=== PATIENT | female | born 1955 | race Caucasian/White ===

== ENCOUNTER → 2017-08-28 | Outpatient (CLI) | payer OTHER ==
[2017-08-28 17:35] LABS: HEMATOCRIT 34.5 % (36.0-47.0); HEMOGLOBIN 11.8 g/dl (12.0-15.5); MEAN CORPUSCULAR HEMOGLOBIN 32.9 pg (27.0-33.0); MEAN CORPUSCULAR HGB CONC 34.2 g/dl (32.0-36.5); MEAN CORPUSCULAR VOLUME 96.1 fl (80.0-96.0); PLATELET COUNT, AUTOMATED 175 10^3/uL (150-450); RED BLOOD COUNT 3.59 10^6/uL (4.00-5.40); WHITE BLOOD COUNT 5.7 10^3/uL (4.0-10.0)
[2017-08-28 19:36] LABS: ALBUMIN 3.8 GM/DL (3.2-5.2); ALBUMIN/GLOBULIN RATIO 1.19 (1.00-1.93); ALKALINE PHOSPHATASE 55 U/L (45-117); ALT/SGPT 39 U/L (12-78); ANION GAP 4 MEQ/L (8-16); AST/SGOT 20 U/L (7-37); BILIRUBIN,TOTAL 0.7 MG/DL (0.2-1.0); BLOOD UREA NITROGEN 12 MG/DL (7-18); CALCIUM LEVEL 9.1 MG/DL (8.8-10.2); CARBON DIOXIDE LEVEL 30 MEQ/L (21-32); CHLORIDE LEVEL 105 MEQ/L (98-107); CHOLESTEROL LEVEL 216 MG/DL (<200); CHOLESTEROL RISK RATIO 2.138 (<5); CREATININE FOR GFR 0.65 MG/DL (0.55-1.30); GLOMERULAR FILTRATION RATE > 60.0 (>45); GLUCOSE, FASTING 85 MG/DL (70-100); HDL CHOLESTEROL 101 MG/DL (>40); LDL CHOLESTEROL 97.8 MG/DL (<100); MAGNESIUM LEVEL 2.1 MG/DL (1.8-2.4); NON-HDL-C 115 MG/DL; POTASSIUM SERUM 4.3 MEQ/L (3.5-5.1); SODIUM LEVEL 139 MEQ/L (136-145); THYROXINE (T4) 9.8 UG/DL (4.5-12.0); TRIGLYCERIDES LEVEL 86 MG/DL (<150)
[2017-08-28 19:40] LABS: FOLATE > 24.0 NG/ML; TOTAL 25(OH) VITAMIN D 18.6 NG/ML (30.0-100.0); VITAMIN B12 LEVEL 563 PG/ML
== END ==
LOC: M LAB 16:45
DX: Z98.84 Bariatric surgery status (principal)
CPT/HCPCS: 82746

== ENCOUNTER → 2018-08-21 | Outpatient (REF) | payer OTHER ==
[2018-08-21 17:50] LABS: INFLUENZA A AMPLIFICATION POSITIVE (NEGATIVE); INFLUENZA B AMPLIFICATION NEGATIVE (NEGATIVE)
== END ==
LOC: M LAB REF 16:28
PROVIDERS: ATTEND Physician Assistant
DX: J11.1 Influenza due to unidentified influenza virus with other respiratory manifestations (principal)

== ENCOUNTER → 2019-02-18 | Outpatient (CLI) | payer OTHER ==
[2019-02-18 11:28] LABS: BASO % 0.9 % (0.0-1.0); EOS # 0.1 10^3/uL (0.0-0.5); EOS % 2.1 % (0.0-3.0); HEMATOCRIT 37.6 % (36.0-47.0); HEMOGLOBIN 12.8 g/dl (12.0-15.5); LYMPH # 1.6 10^3/uL (1.5-5.0); LYMPH % 36.6 % (24.0-44.0); MEAN CORPUSCULAR HEMOGLOBIN 33.9 pg (27.0-33.0); MEAN CORPUSCULAR VOLUME 99.5 fl (80.0-96.0); MONO # 0.4 10^3/uL (0.0-0.8); MONO % 10.4 % (0.0-5.0); NEUTROPHILS # 2.1 10^3/uL (1.5-8.5); NEUTROPHILS % 49.8 % (36.0-66.0); PLATELET COUNT, AUTOMATED 201 10^3/uL (150-450); RED BLOOD COUNT 3.78 10^6/uL (4.00-5.40); WHITE BLOOD COUNT 4.2 10^3/uL (4.0-10.0)
[2019-02-18 11:57] LABS: ALBUMIN 3.6 GM/DL (3.2-5.2); ALT/SGPT 40 U/L (12-78); BILIRUBIN,TOTAL 0.6 MG/DL (0.2-1.0); BLOOD UREA NITROGEN 11 MG/DL (7-18); CALCIUM LEVEL 9.5 MG/DL (8.8-10.2); CARBON DIOXIDE LEVEL 30 MEQ/L (21-32); CHLORIDE LEVEL 104 MEQ/L (98-107); CHOLESTEROL LEVEL 238 MG/DL (<200); CHOLESTEROL RISK RATIO 2.034 (<5); CREATININE FOR GFR 0.69 MG/DL (0.55-1.30); FERRITIN 102 NG/ML (8-252); GLOMERULAR FILTRATION RATE > 60.0 (>45); GLUCOSE, FASTING 94 MG/DL (70-100); HDL CHOLESTEROL 117 MG/DL (>40); LDL CHOLESTEROL 102 MG/DL (<100); MAGNESIUM LEVEL 2.1 MG/DL (1.8-2.4); NON-HDL-C 121 MG/DL; POTASSIUM SERUM 4.3 MEQ/L (3.5-5.1); SODIUM LEVEL 140 MEQ/L (136-145); TRIGLYCERIDES LEVEL 95 MG/DL (<150)
[2019-02-18 12:04] LABS: FOLATE 23.2 NG/ML; TOTAL 25(OH) VITAMIN D 18.5 NG/ML (30.0-100.0); VITAMIN B12 LEVEL 564 PG/ML
== END ==
LOC: M LAB 10:07
PROVIDERS: ATTEND Family Medicine
DX: Z98.84 Bariatric surgery status (principal)

== ENCOUNTER 2019-10-23 02:09 | Emergency (ER) | payer OTHER ==
[~2019-10-23] VITALS: Ht 167.6 cm; Wt 82.0 kg
[2019-10-23 02:10] VITALS: BP 147/83
[2019-10-23] MEDS ORDERED: VITA-145 (02:19)
[2019-10-23] MEDS ORDERED: AMLO2.5T3 (02:19)
[2019-10-23] MEDS ORDERED: VIIB40TA (02:19)
--- NOTE | 2019-10-23 02:50 | REPVR ---
PROCEDURE INFORMATION: Exam: CT Head Without Contrast Exam date and time: 10/23/2019 2:34 AM Age: 63 years old Clinical indication: Injury or trauma; Fall; Initial encounter; Concussion / head injury; Consciousness not specified TECHNIQUE: Imaging protocol: Computed tomography of the head without contrast. Radiation optimization: All CT scans at this facility use at least one of these dose optimization techniques: automated exposure control; mA and/or kV adjustment per patient size (includes targeted exams where dose is matched to clinical indication); or iterative reconstruction. COMPARISON: No relevant prior studies available. FINDINGS: Brain: No intracranial mass, mass effect or midline shift. No acute intracranial hemorrhage. No CT evidence of acute cortical infarct. Ventricles: Ventricles, cisterns, and sulci are normal in size for age. Bones/joints: No calvarial fracture or destructive process. Sinuses: Imaged paranasal sinuses are clear. Mastoid air cells: Mastoid air cells are normally aerated. Orbits: Imaged orbits are unremarkable. Soft tissues: No focal extracranial soft tissue swelling. IMPRESSION: No acute or concerning focal intracranial abnormality. Electronically signed by: Nino Stein On 10/23/2019 02:49:27 AM
--- NOTE | 2019-10-23 02:51 | REPVR ---
PROCEDURE INFORMATION: Exam: CT Cervical Spine Without Contrast Exam date and time: 10/23/2019 2:34 AM Age: 63 years old Clinical indication: Neck pain; Additional info: Trauma TECHNIQUE: Imaging protocol: Computed tomography images of the cervical spine without contrast. Radiation optimization: All CT scans at this facility use at least one of these dose optimization techniques: automated exposure control; mA and/or kV adjustment per patient size (includes targeted exams where dose is matched to clinical indication); or iterative reconstruction. COMPARISON: No relevant prior studies available. FINDINGS: Vertebrae: No traumatic segmental malalignment of cervical spine or craniocervical junction. Vertebral body height is maintained at all levels. No acute fracture. No destructive or blastic cervical spine osseous lesion. Intervertebral disc height is decreased at multiple levels, with typical degenerative pattern and associated endplate, articular pillar and uncovertebral spurs. No high-grade spinal canal stenosis. Mild lower cervical osseous neural foraminal stenosis secondary to uncovertebral arthropathy, C4-C5 through C6-C7 and also C3-C4 Prevertebral Space: Prevertebral soft tissues demonstrate no asymmetry. Lungs: No concerning abnormality of the imaged lung apices. IMPRESSION: 1. No acute fracture or traumatic subluxation of the cervical spine. 2. Multilevel degenerative disc and articular pillar arthropathy. Electronically signed by: Nino Stein On 10/23/2019 02:50:37 AM
--- NOTE | 2019-10-23 05:35 | REP ---
Clinical: Trauma . Technique: AP, lateral, bilateral oblique views of the left elbow. Findings: No acute fracture or dislocation is appreciated. Joint spaces and surrounding soft tissues appear normal. Lateral view demonstrates normal positioning to the anterior and posterior fat pads without evidence for effusion/hemarthrosis. No subcutaneous emphysema or foreign body identified. Impression: No acute fracture or dislocation. Electronically Signed by Jaron Alicea MD 10/23/2019 05:27 A
--- NOTE | 2019-10-23 05:36 | REP ---
Clinical: Trauma. Technique: AP, lateral, bilateral oblique views of the left wrist. Findings: A very subtle buckle fracture of the distal radial metaphysis is suggested. Clinical correlation is recommended. Underlying age-related osteopenia and degenerative changes noted. Impression: Very subtle buckle fracture of the distal radial metaphysis cannot be excluded. Electronically Signed by Jaron Alicea MD 10/23/2019 05:28 A
== END 2019-10-23 05:05 | disposition home or self-care (01) ==
LOC: M ED 02:09
DX: S52.522A Torus fracture of lower end of left radius, initial encounter for closed fracture (principal); S50.02XA Contusion of left elbow, initial encounter; W18.39XA Other fall on same level, initial encounter; Y92.018 Other place in single-family (private) house as the place of occurrence of the external cause; I10 Essential (primary) hypertension; F10.10 Alcohol abuse, uncomplicated; F33.9 Major depressive disorder, recurrent, unspecified; Z79.899 Other long term (current) drug therapy

== ENCOUNTER 2020-07-02 01:50 | Inpatient (IN) | payer OTHER ==
[~2020-07-02] VITALS: Ht 167.6 cm; Wt 83.2 kg
[~2020-07-02 01:50] MED LIST: AMLO2.5T3; VIIB40TA; VITAD1000T
--- OUTSIDE RECORDS SUMMARY | 2020-07-02 01:57 | CCD ---
Author Author [facility] Organization [facility] Address Unknown Phone Unavailable Care Team Providers Care Bit Setter Name Role Phone Sriram THOMASON MD Unavailable Unavailable Sriram THOMASON MD Unavailable Unavailable Sriram THOMASON MD Unavailable Unavailable Sriram THOMASON MD Unavailable Unavailable Sriram THOMASON MD Unavailable Unavailable Sriram THOMASON MD Unavailable Unavailable Sriram THOMASON MD Unavailable Unavailable Sriram THOMASON MD Unavailable Unavailable Sriram THOMASON MD Unavailable Unavailable Sriram THOMASON MD Unavailable Unavailable Sriram THOMASON MD Unavailable Unavailable Sriram THOMASON MD Unavailable Unavailable Sriram THOMASON MD Unavailable Unavailable Sriram THOMASON MD Unavailable Unavailable Sriram THOMASON MD Unavailable Unavailable Sriram THOMASON MD Unavailable Unavailable Sriram THOMASON MD Unavailable Unavailable Sriram THOMASON MD Unavailable Unavailable Sriram THOMASON MD Unavailable Unavailable Sriram THOMASON MD Unavailable Unavailable Sriram THOMASON MD Unavailable Unavailable Sriram THOMASON MD Unavailable Unavailable Sriram THOMASON MD Unavailable Unavailable Sriram THOMASON MD Unavailable Unavailable Sriram THOMASON MD Unavailable Unavailable Sriram THOMASON MD Unavailable Unavailable PADDY, S MURTAZA MD Unavailable Unavailable PADDY, S MURTAZA MD Unavailable Unavailable PADDY, S MURTAZA MD Unavailable Unavailable PADDY, S MURTAZA MD Unavailable Unavailable PADDY, S MURTAZA MD Unavailable Unavailable PADDY, S MURTAZA MD Unavailable Unavailable PADDY, S MURTAZA MD Unavailable Unavailable PADDY, S MURTAZA MD Unavailable Unavailable PADDY, S MURTAZA MD Unavailable Unavailable PADDY, S MURTAZA MD Unavailable Unavailable PADDY, S MURTAZA MD Unavailable Unavailable PADDY, S MURTAZA MD Unavailable Unavailable PADDY, S MURTAZA MD Unavailable Unavailable PADDY, S MURTAZA MD Unavailable Unavailable PADDY, S MURTAZA MD Unavailable Unavailable PADDY, S MURTAZA MD Unavailable Unavailable PADDY, S MURTAZA MD Unavailable Unavailable PADDY, S MURTAZA MD Unavailable Unavailable PADDY, S MURTAZA MD Unavailable Unavailable PADDY, S MURTAZA MD Unavailable Unavailable PADDY, S MURTAZA MD Unavailable Unavailable PADDY, S MURTAZA MD Unavailable Unavailable PADDY, S MURTAZA MD Unavailable Unavailable PADDY, S MURTAZA MD Unavailable Unavailable PADDY, S MURTAZA MD Unavailable Unavailable PADDY, S MURTAZA MD Unavailable Unavailable PADDY, S MURTAZA MD Unavailable Unavailable PADDY S MURTAZA MD Unavailable Unavailable PADDY, S MURTAZA MD Unavailable Unavailable PADDY, S MURTAZA MD Unavailable Unavailable PADDY, S MURTAZA MD Unavailable Unavailable PADDY, S MURTAZA Unavailable Unavailable PADDY, S MURTAZA MD Unavailable Unavailable PADDY S MURTAZA MD Unavailable Unavailable PADDY, S MURTAZA MD Unavailable Unavailable PADDY, S MURTAZA MD Unavailable Unavailable PADDY, S MURTAZA MD Unavailable Unavailable PADDY S MURTAZA MD Unavailable Unavailable PADDY, S MURTAZA MD Unavailable Unavailable PADDY, S MURTAZA MD Unavailable Unavailable PADDY, S MURTAZA MD Unavailable Unavailable PADDY, S MURTAZA MD Unavailable Unavailable PADDY, S MURTAZA MD Unavailable Unavailable PADDY, S MURTAZA MD Unavailable Unavailable PADDY, S MURTAZA MD Unavailable Unavailable PADDY, S MURTAZA MD Unavailable Unavailable PADDY, S MURTAZA MD Unavailable Unavailable PADDY, S MURTAZA MD Unavailable Unavailable PADDY, S MURTAZA MD Unavailable Unavailable PADDY, S MURTAZA MD Unavailable Unavailable PADDY, S MURTAZA MD Unavailable Unavailable PADDY, S MURTAZA MD Unavailable Unavailable PADDY, S MURTAZA MD Unavailable Unavailable PADDY, S MURTAZA MD Unavailable Unavailable PADDY, S MURTAZA MD Unavailable Unavailable PADDY, S MURTAZA MD Unavailable Unavailable PADDY, S MURTAZA MD Unavailable Unavailable PADDY, S MURTAZA MD Unavailable Unavailable PADDY, S MURTAZA MD Unavailable Unavailable PADDY, S MURTAZA MD Unavailable Unavailable PADDY, S MURTAZA MD Unavailable Unavailable PADDY, S MURTAZA MD Unavailable Unavailable PADDY, S MURTAZA MD Unavailable Unavailable PADDY, S MURTAZA MD Unavailable Unavailable HeitnerJose MD Unavailable Unavailable HeitnerJose MD Unavailable Unavailable HeitnerJsoe MD Unavailable Unavailable HeitnerJose MD Unavailable Unavailable HeitnerJose MD Unavailable Unavailable HeitnerJose MD Unavailable Unavailable HeitnerJose MD Unavailable Unavailable HeitnerJose MD Unavailable Unavailable HeitnerJose MD Unavailable Unavailable HeitnerJose MD Unavailable Unavailable HeitnerJose MD Unavailable Unavailable HeitJose herrera MD Unavailable Unavailable HeJose lackey MD Unavailable Unavailable HeitJose herrera MD Unavailable Unavailable HeitJose herrera MD Unavailable Unavailable HeitJose herrera MD Unavailable Unavailable HeitnerJose MD Unavailable Unavailable HeitnerJose MD Unavailable Unavailable HeitJose herrera MD Unavailable Unavailable HeitnerJose MD Unavailable Unavailable HeitnerJose MD Unavailable Unavailable HeitnerJose MD Unavailable Unavailable HeitJose herrera MD Unavailable Unavailable HeitJose herrera MD Unavailable Unavailable HeJose lackey MD Unavailable Unavailable Re-disclosure Warning The records that you are about to access may contain information from federally-assisted alcohol or drug abuse programs. If such information is present, then the following federally mandated warning applies: This information has been disclosed to you from records protected by federal confidentiality rules (42 CFR part 2). The federal rules prohibit you from making any further disclosure of this information unless further disclosure is expressly permitted by the written consent of the person to whom it pertains or as otherwise permitted by 42 CFR part 2. A general authorization for the release of medical or other information is NOT sufficient for this purpose. The Federal rules restrict any use of the information to criminally investigate or prosecute any alcohol or drug abuse patient.The records that you are about to access may contain highly sensitive health information, the redisclosure of which is protected by Article 27-F of the [facility] Public Health law. If you continue you may have access to information: Regarding HIV / AIDS; Provided by facilities licensed or operated by the [facility] Office of Mental Health; or Provided by the [facility] Office for People With Developmental Disabilities. If such information is present, then the following [facility] mandated warning applies: This information has been disclosed to you from confidential records which are protected by state law. State law prohibits you from making any further disclosure of this information without the specific written consent of the person to whom it pertains, or as otherwise permitted by law. Any unauthorized further disclosure in violation of state law may result in a fine or retirement sentence or both. A general authorization for the release of medical or other information is NOT sufficient authorization for further disc losure. Family History Family Member Name Family Member Gender Family Member Status Date o f Status Description Data Source(s) Unknown Male Problem [facility] ([facility]) Unknown Unknown Problem [facility] ([facility], [facility]) Encounters Encounter Providers Location Date Indications Data Source(s ) OFFICE OUTPATIENT NEW 30 MINUTES Attender: Alex Giron MD Phy sical Therapy 10/23/2019 10:15:00 AM EDT MED[facility] ([facility]) Murtaza Thomason MD: [address] [place] [phone], Ph. Attender: MURTAZA THOMASON MD [place] - [facility] 10/03/2019 12:00:00 AM EDT GUS (Murtaza Thomason MD [facility]) Murtaza Thomason MD: [address] [place] [phone], Ph. Attender: MURTAZA THOMASON MD [facility] 05/26/2019 12:00:00 AM EST GUS (Murtaza Thomason MD [facility]) Murtaza Thomason MD: [address] [place] [phone], Ph. Attender: MURTAZA THOMASON MD [facility] 05/26/2019 12:00:00 AM EST GUS (Murtaza Thomason MD [facility]) Murtaza Thomason MD: [address] [place] [phone], Ph. Attender: MURTAZA THOMASON MD [facility] 05/26/2019 12:00:00 AM EST GUS (Murtaza Thomason MD [facility]) Medications Medication Brand Name Start Date Product Form Dose Route Admi nistrative Instructions Pharmacy Instructions Status Indications Reaction Description Data Source(s) 5-10 mg 05/08/2020 12:00:00 AM EST capsule 30 TAKE ONE CAPSULE BY MOUTH EVERY DAY TAKE ONE CAPSULE BY MOUTH EVERY DAY SOLD: 05/11/2020 [facility] 5-10 mg 05/08/2020 12:00:00 AM EST capsule 30 TAKE ONE CAPSULE BY MOUTH EVERY DAY TAKE ONE CAPSULE BY MOUTH EVERY DAY SOLD: 06/21/2020 [facility] 20 mg 04/12/2020 12:00:00 AM EST tablet 30 TAKE ONE TABLET BY MOUTH EVERY DAY TAKE ONE TABLET BY MOUTH EVERY DAY SOLD: 05/12/2020 [facility] 20 mg 04/12/2020 12:00:00 AM EST tablet 30 TAKE ONE TABLET BY MOUTH EVERY DAY TAKE ONE TABLET BY MOUTH EVERY DAY SOLD: 06/21/2020 [facility] 20 mg 04/12/2020 12:00:00 AM EST tablet 30 TAKE ONE TABLET BY MOUTH EVERY DAY TAKE ONE TABLET BY MOUTH EVERY DAY SOLD: 04/13/2020 [facility] 5-10 mg 10/03/2019 12:00:00 AM EDT capsule 90 TAKE ONE CAPSULE BY MOUTH EVERY DAY TAKE ONE CAPSULE BY MOUTH EVERY DAY SOLD: 10/12/2019 [facility] 5-10 mg 10/03/2019 12:00:00 AM EDT capsule 90 TAKE ONE CAPSULE BY MOUTH EVERY DAY TAKE ONE CAPSULE BY MOUTH EVERY DAY SOLD: 01/23/2020 [facility] 5-10 mg 09/05/2019 12:00:00 AM EDT capsule 30 TAKE ONE CAPSULE BY MOUTH EVERY DAY TAKE ONE CAPSULE BY MOUTH EVERY DAY SOLD: 09/08/2019 [facility] 5-10 mg 08/05/2019 12:00:00 AM EDT capsule 30 TAKE ONE CAPSULE BY MOUTH EVERY DAY TAKE ONE CAPSULE BY MOUTH EVERY DAY SOLD: 08/06/2019 [facility] 40 mg 05/26/2019 12:00:00 AM EST tablet 90 TAKE ONE TABLET BY MOUTH EVERY DAY TAKE ONE TABLET BY MOUTH EVERY DAY SOLD: 05/27/2019 [facility] 5-10 mg 05/23/2019 12:00:00 AM EST capsule 30 TAKE ONE CAPSULE BY MOUTH ONCE A DAY TAKE ONE CAPSULE BY MOUTH ONCE A DAY SOLD: 06/29/2019 [facility] 5-10 mg 05/23/2019 12:00:00 AM EST capsule 30 TAKE ONE CAPSULE BY MOUTH ONCE A DAY TAKE ONE CAPSULE BY MOUTH ONCE A DAY SOLD: 05/27/2019 [facility] Insurance Providers Payer name Policy type / Coverage type Policy ID Covered democrat ID Covered democrat's relationship to [place] Policy [place] Plan Information [facility] [id number] SP [id number] [facility] Commercial [id number] Self [id number] [employer] [id number] SP [id number] [facility] (HMO) [id number] Self [id number] [employer] [id number] SP [id number] [employer] [id number] SP [id number] [employer] O [id number] S [id number] [employer] [id number] Janae [id number] [employer] [id number] 0 [id number] Problems, Conditions, and Diagnoses Code Display Name Description Problem Type Effective Dates Data Source(s) [id number] Dysphagia Dysphagia Problem 05/22/2019 12:00:00 AM GISEL WEBER (Murtaza Thomason MD [facility]) [id number] Obesity Obesity Problem 05/22/2019 12:00:00 AM ES Randall WEBER (Murtaza Thomason MD [facility]) [id number] Hyperlipidemia Hyperlipidemia Problem 10/03/2019 12:00: 00 AM EDT GUS (Murtaza Thomason MD [facility]) [id number] Dysphagia Dysphagia Problem 05/22/2019 12:00:00 AM ES Randall WEBER (Murtaza Thomason MD [facility]) [id number] Obesity Obesity Problem 05/22/2019 12:00:00 AM ES T GUS (Murtaza Thomason MD [facility]) [id number] Dysphagia Dysphagia Problem 05/22/2019 12:00:00 AM ES T GUS (Murtaza Thomason MD [facility]) [id number] Obesity Obesity Problem 05/22/2019 12:00:00 AM ES Randall WEBER (Murtaza Thomason MD [facility]) Surgeries/Procedures Procedure Description Date Indications Data Source(s) RADEX WRIST 2 VIEWS 12/08/2019 12:00:00 AM EDT [facility] ([facility] ) RADEX WRIST 2 VIEWS 11/07/2019 12:00:00 AM EDT [facility] ([facility] ) CLTX DSTL RADIAL FX/EPIPHYSL SEP W/O MANJ 10/23/2019 1 2:00:00 AM EDT [facility] ([facility] ) APPLICATION CAST ELBOW FINGER SHORT ARM 10/23/2019 12: 00:00 AM EDT [facility] ([facility] ) Results ID Date Data Source [id number] 10/06/2019 07:24:00 AM EDT GUS (Murtaza Thomason MD [facility]) Name Value Range Interpretation Code Description Data Natasha rce(s) Supporting Document(s) Rate & Rhythm Rate & Rhythm [facility] (Lonnie Thomason MD [facility]) QRS Qrs G[facility] (Murtaza mirza MD [facility]) DC Interval DC Interval GUS (Murtaza Benitez MD [facility]) QT Interval QT Interval GUS (Murtaza Benitez MD [facility]) QRS Duration QRS Duration GUS (Murtaza Thomason MD [facility]) Procedure Vital Signs ID Date Data Source UNK Name Value Range Interpretation Code Description Data Source(s) Body weight 179 [lb_av] 179 [lb_av] [facility] ([facility] Systolic blood pressure 172 mm[Hg] 172 mm[Hg] A THENA ([facility]) Body mass index (BMI) [Ratio] 28.9 kg/m2 28.9 k g/m2 [facility] ([facility]) Body height 66 [in_i] 66 [in_i] [facility] ([facility]) Diastolic blood pressure 92 mm[Hg] 92 mm[Hg] [facility] ([facility] Body weight 176 [lb_av] 176 [lb_av] [facility] ([facility]) Systolic blood pressure 133 mm[Hg] 133 mm[Hg] A THENA ([facility]) Body mass index (BMI) [Ratio] 28.4 kg/m2 28.4 k g/m2 [facility] ([facility]) Body height 66 [in_i] 66 [in_i] [facility] ([facility]) Diastolic blood pressure 82 mm[Hg] 82 mm[Hg] [facility] ([facility]) Body weight 176 [lb_av] 176 [lb_av] [facility] ([facility]) Systolic blood pressure 133 mm[Hg] 133 mm[Hg] A THENA ([facility]) Body mass index (BMI) [Ratio] 28.4 kg/m2 28.4 k g/m2 [facility] ([facility]) Body height 66 [in_i] 66 [in_i] [facility] ([facility]) Diastolic blood pressure 82 mm[Hg] 82 mm[Hg] [facility] ([facility]) Body weight 176 [lb_av] 176 [lb_av] [facility] ([facility]) Systolic blood pressure 133 mm[Hg] 133 mm[Hg] A THENA ([facility]) Body mass index (BMI) [Ratio] 28.4 kg/m2 28.4 k g/m2 [facility] (Murtaza Thomason MD [facility]) Body height 66 [in_i] 66 [in_i] [facility] ([facility]) Diastolic blood pressure 82 mm[Hg] 82 mm[Hg] GUS (Murtaza GIBSON)
[2020-07-02] MEDS ORDERED: PARO20TA3 PO (02:10)
[2020-07-02] MEDS ORDERED: LOTR5CAP2 PO (02:10)
--- NOTE | 2020-07-02 02:26 | REPVR ---
PROCEDURE INFORMATION: Exam: CT Head Without Contrast Exam date and time: 07/02/2020 2:01 AM Age: 64 years old Clinical indication: Pain; Headache not specified; Additional info: CVA - nursing interventions must not delay CT TECHNIQUE: Imaging protocol: Computed tomography of the head without contrast. Radiation optimization: All CT scans at this facility use at least one of these dose optimization techniques: automated exposure control; mA and/or kV adjustment per patient size (includes targeted exams where dose is matched to clinical indication); or iterative reconstruction. COMPARISON: CT Head without contrast 10/23/2019 2:38 AM FINDINGS: Brain: Normal. No hemorrhage. Unremarkable white matter. No mass effect. Cerebral ventricles: No ventriculomegaly. Bones/joints: Unremarkable. No acute fracture. Paranasal sinuses: Visualized sinuses are unremarkable. No fluid levels. Mastoid air cells: Visualized mastoid air cells are well aerated. Soft tissues: Unremarkable. IMPRESSION: Negative noncontrast head CT without change from 10/23/2019. Electronically signed by: Dajlit Dos Santos On 07/02/2020 02:25:48 AM
[2020-07-02 02:36] LABS: BASO % 0.4 % (0.0-1.0); EOS % 0.8 % (0.0-3.0); HEMATOCRIT 38.3 % (36.0-47.0); HEMOGLOBIN 12.6 g/dl (12.0-15.5); LYMPH # 1.8 10^3/uL (1.5-5.0); LYMPH % 36.8 % (24.0-44.0); MEAN CORPUSCULAR HEMOGLOBIN 32.5 pg (27.0-33.0); MEAN CORPUSCULAR HGB CONC 32.9 g/dl (32.0-36.5); MEAN CORPUSCULAR VOLUME 98.7 fl (80.0-96.0); MONO # 0.6 10^3/uL (0.0-0.8); MONO % 12.8 % (0.0-5.0); NEUTROPHILS # 2.4 10^3/uL (1.5-8.5); NEUTROPHILS % 49.2 % (36.0-66.0); PLATELET COUNT, AUTOMATED 213 10^3/uL (150-450); RED BLOOD COUNT 3.88 10^6/uL (4.00-5.40); WHITE BLOOD COUNT 4.8 10^3/uL (4.0-10.0)
--- NOTE | 2020-07-02 02:43 | REPVR ---
PROCEDURE INFORMATION: Exam: XR Chest, 1 View Exam date and time: 07/02/2020 2:29 AM Age: 64 years old Clinical indication: Shortness of breath; Additional info: CVA TECHNIQUE: Imaging protocol: XR of the chest Views: 1 view. COMPARISON: No relevant prior studies available. FINDINGS: Lungs: Unremarkable. No consolidation. Pleural spaces: Unremarkable. No pleural effusion. No pneumothorax. Heart/Mediastinum: Unremarkable. No cardiomegaly. Bones/joints: Unremarkable. IMPRESSION: Negative chest. Electronically signed by: Daljit Dos Santos On 07/02/2020 02:42:30 AM
[2020-07-02 03:09] LABS: BLOOD UREA NITROGEN 10 MG/DL (7-18); CALCIUM LEVEL 9.2 MG/DL (8.8-10.2); CARBON DIOXIDE LEVEL 27 MEQ/L (21-32); CHLORIDE LEVEL 108 MEQ/L (98-107); CK-MB VALUE MASS 1.9 NG/ML (<3.6); CPK CREATINE PHOSPHOKINASE 355 U/L (26-192); CREATININE FOR GFR 0.59 MG/DL (0.55-1.30); GLOMERULAR FILTRATION RATE > 60.0 (>45); GLUCOSE, FASTING 106 MG/DL (70-100); MB/CK RELATIVE INDEX 0.54 (< OR =4); POTASSIUM SERUM 4.1 MEQ/L (3.5-5.1); SODIUM LEVEL 144 MEQ/L (136-145); TROPONIN I < 0.02 NG/ML (< 0.10)
--- NOTE | 2020-07-02 05:25 | REPVR ---
PROCEDURE INFORMATION: Exam: MR Angiography Neck Without Contrast Exam date and time: 07/02/2020 5:10 AM Age: 64 years old Clinical indication: Pain; Headache; Additional info: B/l le weakness, post headache TECHNIQUE: Imaging protocol: Magnetic resonance angiography of the neck without contrast. 3D rendering (Not supervised by radiologist): MIP and/or 3D reconstructed images were created by the technologist. COMPARISON: CT Spine,cervical w/o contrast 2019-10-23 02:38 FINDINGS: Right common carotid artery: No stenosis. No dissection or occlusion. Right internal carotid artery: Mild atherosclerotic plaque in the carotid bulb and proximal right internal carotid artery with less than 50% stenosis by NASCET criteria. Right external carotid artery: No stenosis. No dissection or occlusion of the origin. Right vertebral artery: No stenosis. No dissection or occlusion. Left common carotid artery: No stenosis. No dissection or occlusion. Left internal carotid artery: Mild atherosclerotic plaque in the proximal left internal carotid artery and carotid bulb with less than 50% stenosis by NASCET criteria. Left external carotid artery: No stenosis. No dissection or occlusion of the origin. Left vertebral artery: No stenosis. No dissection or occlusion. IMPRESSION: Minimal atherosclerotic plaque in the proximal ICAs. REFERENCES: NASCET CRITERIA. The degree of internal carotid artery stenosis is based on NASCET criteria. Normal is no stenosis. Mild is less than 50% stenosis. Moderate is 50-69% stenosis. Severe is 70% to 99% stenosis. Total occlusion is no detectable patent lumen. Electronically signed by: Jose Isabel On 07/02/2020 05:25:31 AM
--- NOTE | 2020-07-02 05:25 | REPVR ---
PROCEDURE INFORMATION: Exam: MR Head Without Contrast Exam date and time: 07/02/2020 5:10 AM Age: 64 years old Clinical indication: Pain; Headache; Cluster; Additional info: B/l le weakness, post headache TECHNIQUE: Imaging protocol: MR of the head without contrast. COMPARISON: 1. CT Head without contrast 2020-07-02 02:[address] Head without contrast 2019-10-23 02:38 FINDINGS: Brain: Normal brain volume. No diffusion restriction to suggest acute ischemia or infarct. No abnormal FLAIR parenchymal signal hyperintensities. No gradient susceptibility blooming within the brain parenchyma to suggest hemorrhage. No midline shift, mass, or fluid collection is present. The brainstem, posterior fossa and cervical medullary junction are preserved. Cerebral ventricles: Normal. No ventriculomegaly. Bones/joints: Unremarkable. Paranasal sinuses: Normal as visualized. No acute sinusitis. Mastoid air cells: Normal as visualized. No mastoid effusion. Orbital cavity: Unremarkable. Soft tissues: Unremarkable. IMPRESSION: Normal brain MR. Electronically signed by: Jose Isabel On 07/02/2020 05:24:41 AM
--- NOTE | 2020-07-02 05:26 | REPVR ---
PROCEDURE INFORMATION: Exam: MR Angiogram Head Without Contrast, Arteries Exam date and time: 07/02/2020 5:10 AM Age: 64 years old Clinical indication: Pain; Headache; Additional info: B/l le weakness, post headache TECHNIQUE: Imaging protocol: MR angiogram head without contrast. Exam focused on the arteries. 3D rendering (Not supervised by radiologist): MIP and/or 3D reconstructed images were created by the technologist. COMPARISON: 1. CT Head without contrast 2020-07-02 02:[address] Head without contrast 2019-10-23 02:38 FINDINGS: ANTERIOR CIRCULATION: Right internal carotid artery: Intracranial segment is patent with no significant stenosis. No aneurysm. Right middle cerebral artery: No occlusion or significant stenosis. No aneurysm. Right anterior cerebral artery: No occlusion or significant stenosis. No aneurysm. Left internal carotid artery: Intracranial segment is patent with no significant stenosis. No aneurysm. Left middle cerebral artery: No occlusion or significant stenosis. No aneurysm. Left anterior cerebral artery: No occlusion or significant stenosis. No aneurysm. POSTERIOR CIRCULATION: Right vertebral artery: No occlusion or significant stenosis. No aneurysm. Left vertebral artery: No occlusion or significant stenosis. No aneurysm. Basilar artery: No occlusion or significant stenosis. No aneurysm. Right posterior cerebral artery: No occlusion or significant stenosis. No aneurysm. Left posterior cerebral artery: No occlusion or significant stenosis. No aneurysm. IMPRESSION: No stenosis or occlusion. Electronically signed by: Jose Isabel On 07/02/2020 05:26:06 AM
[2020-07-02 06:28] LABS: RSV AMPLIFICATION NEGATIVE (NEGATIVE)
[2020-07-02] MEDS ORDERED: KETOROLAC 30 MG/ML 1ML VIAL IV ONE (07:00)
--- OUTSIDE RECORDS SUMMARY | 2020-07-02 07:01 | CCD ---
Author Author [facility] Organization [facility] Address Unknown Phone Unavailable Care Team Providers Care Electrical Experimental Mechanic Name Role Phone Sriram THOMASON MD Unavailable Unavailable Sriram THOMASON MD Unavailable Unavailable Sriram THOMASON MD Unavailable Unavailable Sriram THOMASON MD Unavailable Unavailable Sriram THOMASON MD Unavailable Unavailable Sriram THOMASON MD Unavailable Unavailable Sriarm THOMASON MD Unavailable Unavailable Sriram THOMASON MD [...] Unavailable PADDY, S MURTAZA MD Unavailable Unavailable PADYD, S MURTAZA MD Unavailable Unavailable PADDY, S [...] MD Unavailable Unavailable HeitnerJose MD Unavailable Unavailable HeitJsoe herrera MD Unavailable Unavailable HeitnerJose MD Unavailable [...] is protected by Article 27-F of the [facility] Public Health law. If you continue you may have access to information: Regarding HIV / AIDS; Provided by facilities licensed or operated by the [facility] Office of Mental Health; or Provided by the [facility] Office for People With Developmental Disabilities. If such information is present, then the following [facility] mandated warning applies: This information has been [...] law may result in a fine or detention sentence or both. A general authorization for the release of medical or other information is NOT sufficient authorization for further disc losure. Family History Family Member Name Family Member Gender Family Member Status Date o f Status Description Data Source(s) Unknown Male Problem MEDENT ([facility]) Unknown Unknown Problem MEDENT ([facility]) Encounters Encounter Providers Location Date Indications Data Source(s ) OFFICE OUTPATIENT NEW 30 MINUTES Attender: Alex Giron MD Phy sical Therapy 10/23/2019 10:15:00 AM EDT MEDENT ([facility]) Murtaza Thomason MD: [address] [place] [phone], Ph. Attender: MURTAZA THOMASON MD [place] - [facility] 10/03/2019 12:00:00 AM EDT GUS (Murtaza Thomason MD [facility]) Murtaza Thomason MD: [address] [place] [phone], Ph. Attender: MURTAZA THOMASON MD [facility] 05/26/2019 12:00:00 AM EST GUS (Murtaza Thomason MD [facility]) Murtaza Thomason MD: [address] [place] [phone], Ph. Attender: MURTAZA THOMASON MD [facility] 05/26/2019 12:00:00 AM EST GUS (Murtaza Thomason MD [facility]) Murtaza Thomason MD: [address] [place] [phone], Ph. Attender: MURTAZA THOMASON MD [facility] 05/26/2019 12:00:00 AM EST GUS (Murtaza Thomason MD [facility]) Medications Medication Brand Name Start Date Product [...] TABLET BY MOUTH EVERY DAY SOLD: 04/13/2020 [facility] 5-10 mg 10/03/2019 12:00:00 AM EDT [...] type / Coverage type Policy ID Covered libertarian ID Covered libertarian's relationship to calhoun Policy [place] Plan Information [facility] [id number] SP [id number] [facility] [id number] SP [id number] [facility] Commercial [id number] Self [id number] [employer] [id number] SP [id number] [facility]/[employer] Health Maintenance [employer] (HMO) [id number] Self [id number] [employer] [id number] SP [id number] [employer] [id number] SP [id number] [employer] O [id number] S [id number] [employer] [id number] Janae [id number] [employer] [id number] 0 [id number] Problems, Conditions, and Diagnoses Code Display Name Description Problem Type Effective Dates Data Source(s) 40070027 Dysphagia Dysphagia Problem 05/22/2019 12:00:00 AM ES Randall WEBER (Murtaza Thomason MD [facility]) [id number] Obesity Obesity Problem 05/22/2019 12:00:00 AM ES Randall WEBER (Murtaza Thomason MD [facility]) [id number] Hyperlipidemia Hyperlipidemia Problem 10/03/2019 12:00: 00 AM EDT GUS (Murtaza Thomason MD [facility]) [id number] Dysphagia Dysphagia Problem 05/22/2019 12:00:00 AM ES Randall WEBER (Murtaza Thomason MD [facility]) [id number] Obesity Obesity Problem 05/22/2019 12:00:00 AM ES Randall WEBER (Murtaza Thomason MD [facility]) [id number] Dysphagia Dysphagia Problem 05/22/2019 12:00:00 AM ES Randall WEBER (Murtaza Thomason MD [facility]) [id number] Obesity Obesity Problem 05/22/2019 12:00:00 AM ES Randall WEBER (Murtaza Thomason MD [facility]) Surgeries/Procedures Procedure Description Date Indications Data Source(s) RADEX WRIST 2 VIEWS 12/08/2019 12:00:00 AM EDT MEDENT ([facility] RADEX WRIST 2 VIEWS 11/07/2019 12:00:00 AM EDT MEDENT ([facility] ) CLTX DSTL RADIAL FX/EPIPHYSL SEP W/O MANJ 10/23/2019 1 2:00:00 AM EDT MEDENT ([facility] ) APPLICATION CAST ELBOW FINGER SHORT ARM 10/23/2019 12: 00:00 AM EDT MEDENT ([facility] ) Results ID Date Data Source [id number] 10/06/2019 07:24:00 AM EDT GUS (Murtaza Thomason MD [facility]) Name Value Range Interpretation Code Description Data Natasha rce(s) Supporting Document(s) Rate & Rhythm Rate & Rhythm GUS (Lonnie Thomason MD [facility]) QRS Qrs GUS (Murtaza mirza MD [facility]) [place] Interval [place] Interval GSU (Murtaza Benitez MD [facility]) QT Interval QT Interval GUS (Murtaza Benitez MD [facility]) QRS Duration QRS Duration [facility] Procedure Vital Signs ID Date Data Source UNK Name Value Range Interpretation Code Description Data Source(s) Body weight 179 [lb_av] 179 [lb_av] [facility] ([facility]) Systolic blood pressure 172 mm[Hg] 172 mm[Hg] A THENA ([facility] Body mass index (BMI) [Ratio] 28.9 kg/m2 28.9 k g/m2 [facility] Body height 66 [in_i] 66 [in_i] [facility] Diastolic blood pressure 92 mm[Hg] 92 mm[Hg] [facility] Body weight 176 [lb_av] 176 [lb_av] [facility] (Err [facility]ia [facility]) Systolic blood pressure 133 mm[Hg] 133 mm[Hg] A THENA ([facility]) Body mass index (BMI) [Ratio] 28.4 kg/m2 28.4 k g/m2 [facility] Body height 66 [in_i] 66 [in_i] [facility] Diastolic blood pressure 82 mm[Hg] 82 mm[Hg] [facility] Body weight 176 [lb_av] 176 [lb_av] [facility] ([facility]) Systolic blood pressure 133 mm[Hg] 133 mm[Hg] A THENA ([facility]) Body mass index (BMI) [Ratio] 28.4 kg/m2 28.4 k g/m2 [facility] Body height 66 [in_i] 66 [in_i] [facility]) Diastolic blood pressure 82 mm[Hg] 82 mm[Hg] [facility] ([facility]) Body weight 176 [lb_av] 176 [lb_av] [facility] ([facility]) Systolic blood pressure 133 mm[Hg] 133 mm[Hg] A THENA ([facility]) Body mass index (BMI) [Ratio] 28.4 kg/m2 28.4 k g/m2 GUS (Murtaza CAMPOS) Body height 66 [in_i] 66 [in_i] GUS (Murtaza CAMPOS) Diastolic blood pressure 82 mm[Hg] 82 mm[Hg] GUS (Murtaza CAMPOS)
[2020-07-02 09:39] LABS: C REACTIVE PROTEIN QUANTITATIV < 0.30 MG/DL (0.00-0.30)
[2020-07-02 10:17] LABS: ERYTHROCYTE SEDIMENTATION RATE 16 mm/hr (0-30)
--- OUTSIDE RECORDS SUMMARY | 2020-07-02 13:57 | CCD ---
Author Author [facility] Organization [facility] Address Unknown Phone Unavailable Care Team Providers Care Substance Abuse Services Director Name Role Phone Sriram THOMASON MD Unavailable [...] is protected by Article 27-F of the [facility] Public Health law. If you continue you may have access to information: Regarding HIV / AIDS; Provided by facilities licensed or operated by the [facility] Office of Mental Health; or Provided by the [facility] Office for People With Developmental Disabilities. If such information is present, then the following [facility] mandated warning applies: This information has been [...] law may result in a fine or longterm sentence or both. A general authorization for the release of medical or other information is NOT sufficient authorization for further disc losure. Family History Family Member Name Family Member Gender Family Member Status Date o f Status Description Data Source(s) Unknown Male Problem MEDENT ([facility]) Unknown Unknown Problem MEDENT ([facility]) Encounters Encounter Providers Location Date Indications Data Source(s ) OFFICE OUTPATIENT NEW 30 MINUTES Attender: Alex Giron MD Phy sical Therapy 10/23/2019 10:15:00 AM EDT MEDENT ([facility]) Murtaza Thomason MD: [address] [place] [phone], Ph. Attender: MURTAZA THOMASON MD [place] - [facility] 10/03/2019 12:00:00 AM EDT GUS (Murtaza Thomason MD [facility]) Murtaza Thomason MD: [address] [place] [phone], Ph. Attender: MURTAZA THOMASON MD [facility] 05/26/2019 12:00:00 AM EST GUS (Murtaza Thomason MD [facility]) Murtaza Thomason MD: [address] [place] [phone], Ph. Attender: MURTAZA THOMASON MD [facility] 05/26/2019 12:00:00 AM EST GUS (Murtaza Thomason MD [facility]) Murtaza Thomason MD: [address] [place] [phone], Ph. Attender: MURTAZA THOMASON MD [facility] 05/26/2019 12:00:00 AM EST GUS (Murtaza Thomason MD [facility]) Medications Medication Brand Name Start Date Product [...] type / Coverage type Policy ID Covered alliance party ID Covered alliance party's relationship to calhoun Policy [place] Plan Information [facility] [id number] SP [id number] [facility] [id number] SP [id number] [facility] Commercial [id number] Self [id number] [employer] [id number] SP [id number] [facility]/[employer] Health Maintenance [employer] (HMO) [id number] Self [id number] [employer] [id number] SP [id number] [employer] [id number] SP [id number] [employer] O [id number] S [id number] [employer] [id number] Janae [id number] [employer] [id number] 0 [id number] Problems, Conditions, and Diagnoses Code Display Name Description Problem Type Effective Dates Data Source(s) [id number] Dysphagia Dysphagia Problem 05/22/2019 12:00:00 AM ES Randall WEBER (Murtaza Thomason MD [facility]) [id number] Obesity Obesity Problem 05/22/2019 12:00:00 AM ES Randall WEBER (Murtaza Thomason MD [facility]) [id number] Hyperlipidemia Hyperlipidemia Problem 10/03/2019 12:00: 00 AM EDT GUS (Murtaza Thomason MD [facility]) [id number] Dysphagia Dysphagia Problem 05/22/2019 12:00:00 AM ES Randall WEBER (Murtaza Thoamson MD [facility]) [id number] Obesity Obesity Problem 05/22/2019 12:00:00 AM ES Randall WEBER (Murtaza Thomason MD [facility]) [id number] Dysphagia Dysphagia Problem 05/22/2019 12:00:00 AM ES Randall WEBER (Murtaza Thomason MD [facility]) [id number] Obesity Obesity Problem 05/22/2019 12:00:00 AM ES Randall WEBER (Murtaza Thomason MD [facility]) Surgeries/Procedures Procedure Description Date Indications Data Source(s) RADEX WRIST 2 VIEWS 12/08/2019 12:00:00 AM EDT MEDENT ([facility] ) RADEX WRIST 2 VIEWS 11/07/2019 12:00:00 AM EDT MEDENT ([facility] ) CLTX DSTL RADIAL FX/EPIPHYSL SEP W/O MANJ 10/23/2019 1 2:00:00 AM EDT MEDENT ([facility] ) APPLICATION CAST ELBOW FINGER SHORT ARM 10/23/2019 12: 00:00 AM EDT MEDENT ([facility] ) Results ID Date Data Source [id number] 10/06/2019 07:24:00 AM EDT GUS (Murtaza Thomason MD [facility]) Name Value Range Interpretation Code Description Data Natasha rce(s) Supporting Document(s) Rate & Rhythm Rate & Rhythm GUS (Lonnie Thomason MD [facility]) QRS Qrs GUS (Murtaza mirza MD [facility]) NC Interval NC Interval GUS (Murtaza Benitez MD [facility]) QT Interval QT Interval GUS (Murtaza Benitez MD [facility]) QRS Duration QRS Duration [facility] ([facility]) Procedure Vital Signs ID Date Data Source UNK Name Value Range Interpretation Code Description Data Source(s) Body weight 179 [lb_av] 179 [lb_av] [facility] ([facility]) Systolic blood pressure 172 mm[Hg] 172 mm[Hg] A THENA ([facility]) Body mass index (BMI) [Ratio] [...] (BMI) [Ratio] 28.4 kg/m2 28.4 k g/m2 [facility] ([facility]) Body height 66 [...]
[2020-07-02] MEDS ORDERED: MAALOX 30 ML SUSP *UDC PO PRN (14:00)
[2020-07-02] MEDS ORDERED: MOM 30ML SUSPENSION UDC PO PRN (14:00)
[2020-07-02] MEDS ORDERED: ACETAMINOPHEN TAB 650MG DOSE (2X325MG) PO PRN (14:00)
--- NOTE | 2020-07-02 14:42 | HPEPDOC ---
[facility] Medical History & Physical Date of Admission Jul 02, 2020 Date of Service: Jul 02, 2020 History and Physical CHIEF COMPLAINT: bilateral lower extremity weakness HISTORY OF PRESENT ILLNESS: 64-year-old female with a history of depression, hypercholesterolemia, and ovarian cancer, presented to hospital with a 12 hour h istory of unsteady gait and lower extremity weakness. Patient denies any lightheadedness, dizziness, blurred vision, dictations, chest pain, shortness of breath, nausea, vomiting or diarrhea. On arrival to the ED, patient's vitals were stable. She was saturating 98% on room air. Her blood pressure was 147/83. For for mild elevation in creatinine kinase to 355, there was no laboratory abnormality. Given concern for stroke. Head CT, carotid MRI brain MRI and MRA were conducted which showed no acute intracranial abnormality or stenosis. Recommendation for MRI of the C-spine per Dr. Crow. Patient will be admitted to hospitalist service for monitoring. Physical therapy and her ongoing imaging. PAST MEDICAL HISTORY: HYPERCHOLESTEREMIA DEPRESSION NEUROPATHY OVARIAN CA. PAST SURGICAL HISTORY: Hysterectomy Cholecystectomy SOCIAL HISTORY: Patient denies smoking Patient denies etoh use Patient denies illicit drug use FAMILY HISTORY: reviewed with patient, no pertinent family hx ALLERGIES: Please see below. REVIEW OF SYSTEMS: 10 point review of systems completed, pertinent findings n HPI HOME MEDICATIONS: Please see below. PHYSICAL EXAMINATION: VITAL SIGNS: please see below General: NAD, comfortable HEENT: PERRLA, EOMI, sclerae clear Neck: supple, normal ROM, no JVD Respiratory: lungs CTAB, no wheeze, no rales, no crackles CVS: RRR, normal S1, S2, no murmurs Abdo: soft, no masses, no hepatosplenomegaly, BS+, no rebound tenderness Extremities: no edema, pulses 2+ MSK: no joint deformities, normal ROM Neuro: no focal neuro deficits, moving all 4 extremities, CN2-12 intact. Streng th 5/5 in all 4 extremities. No nystagmus. Reflexes 2+. Psych: calm, cooperative, AAO x 3 LABORATORY DATA: See below. IMAGING: CT head wo contrast (07/02/20): IMPRESSION: Negative noncontrast head CT without change from 10/23/2019. CXR (07/02/20): IMPRESSION: Negative chest. MRA carotid wo contrast (07/02/20): IMPRESSION: Minimal atherosclerotic plaque in the proximal ICAs. MRA wo contrast (07/02/20): IMPRESSION: No stenosis or occlusion. MRI brain wo contrast (07/02/20): IMPRESSION: Normal brain MR. MICROBIOLOGY: Please see below. ASSESSMENT: 64-year-old female with a history of hyperlipidemia, ovarian cancer presenting with unsteady gait and bilateral lotion to weakness for the past 12 hours. Suspected for CVA, brain imaging has been negative so far. Discussed with Dr. Crow in the ER. Recommending MRI C-spine. Admitted for physical therapy and observation. PLAN: #unsteady gait - 12 hour hx of BLE weakness, and unsteady gait. No focal numbness, no cranial nerve deficits, no slurred speech or blurred vision. - CT head, MRA, MRI, MR carotids without acute abnormality - Dr. Ashley recommending MRI c-spine, ordered STAT - neurology consult - check orthostats - PT/OT - fall precautions #HTN - resume home meds - amlodipine, benazepril #Depression - paroxetine 20 mg tab DVT ppx: SCDs, TEDs, lovenox Vital Signs Vital Signs Date Time Temp Pulse Resp B/P (MAP) Pulse Ox O2 Delivery O2 Flow Rate FiO2 07/02/20 09:30 129/76 (93) 07/02/20 09:29 69 96 07/02/20 06:05 18 07/02/20 01:51 98.0 Room Air Laboratory Data Labs 24H Laboratory Tests 2 07/02/20 02:21: Immature Granulocyte % (Auto) 0.0, Neutrophils (%) (Auto) 49.2, Lymphocytes (%) (Auto) 36.8, Monocytes (%) (Auto) 12.8H, Eosinophils (%) (Auto) 0.8, Basophils (%) (Auto) 0.4, Neutrophils # (Auto) 2.4, Lymphocytes # (Auto) 1.8, Monocytes # (Auto) 0.6, Eosinophils # (Auto) 0.0, Basophils # (Auto) 0.0, Nucleated Red Blood Cells % (auto) 0.0, Erythrocyte Sedimentation Rate 16, Activated Partial Thromboplast Time 27.4, Anion Gap 9, Glomerular Filtration Rate > 60.0, Calcium Level 9.2, Total Creatine Kinase 355H, Creatine Kinase MB 1.9, Creatine Kinase MB Relative Index 0.54, Troponin I < 0.02, C-Reactive Protein, Quantitative < 0.30 07/02/20 05:43: Coronavirus (COVID-19)(PCR) NEGATIVE, Influenza Type A (RT-PCR) NEGATIVE, Influenza Type B (RT-PCR) NEGATIVE, Respiratory Syncytial Virus (PCR) NEGATIVE CBC/BMP Laboratory Tests 07/02/20 02:21 Home Medications Scheduled Amlodipine Besylate/Benazepril (Lotrel 5-10 mg Capsule) 1 Each Capsule, 1 CAP PO DAILY Folic Acid (Folic Acid) 1 Mg Tablet, 1 TAB PO DAILY Paroxetine HCl (Paroxetine HCl) 20 Mg Tablet, 20 MG PO DAILY Thiamine Hcl (Vitamin B-1) 100 Mg Tablet, 1 TAB PO DAILY Allergies Coded Allergies: No Known Allergies (Unverified , 10/23/19) A-FIB/CHADSVASC A-FIB History Current/History of A-Fib/PAF?: No Current PO Anticoag Therapy: No KANDY POWELL MD Jul 02, 2020 14:42
[2020-07-02 15:44] VITALS: BP 138/76
[2020-07-02] MEDS: amLODIPine 5 MG TAB PO SCH (15:59)
[2020-07-02] MEDS: PARoxetine 20MG TABLET PO SCH (15:59)
[2020-07-02 18:00] VITALS: BP 135/75
[2020-07-02] MEDS: BENAZEPRIL 5 MG TAB PO SCH (18:10)
--- NOTE | 2020-07-02 19:36 | ECGEPIP ---
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
--- NOTE | 2020-07-02 19:44 | REPVR ---
PROCEDURE INFORMATION: Exam: MR Cervical Spine Without Contrast Exam date and time: 07/02/2020 7:16 PM Age: 64 years old Clinical indication: Patient HX: Unsteady gait neck pain TECHNIQUE: Imaging protocol: Multiplanar magnetic resonance images of the cervical spine without contrast. COMPARISON: CT Spine,cervical w/o contrast 10/23/2019 2:38 AM FINDINGS: Vertebrae: Unremarkable. Spinal cord: Normal signal. No cord compression. C2-C3: No significant disc disease. No significant spinal stenosis. C3-C4: Broad posterior disc protrusion at C3-C4 results in mild flattening of the thecal sac with minimal cord impingement. C4-C5: Broad posterior disc protrusion at C4-C5 effaces the ventral subarachnoid space with mild cord impingement. C5-C6: Broad posterior disc protrusion at C5-C6 effaces the ventral subarachnoid space without significant cord impingement. Moderate bilateral foraminal narrowing secondary to uncinate joint hypertrophic change. C6-C7: Broad posterior disc protrusion at C6-C7 effaces the ventral subarachnoid space without significant cord impingement. Moderate to severe foraminal stenosis on the left. C7-T1: No significant disc disease. No significant spinal stenosis. Soft tissues: Unremarkable. Vertebral arteries: Expected flow voids in the vertebral arteries. IMPRESSION: 1. Multilevel disc protrusions from C3-C4 to C6-C7 resulting in mild cord impingement at C3-C4 and C4-C5. Moderate bilateral foraminal stenosis at C5-C6 and moderate to severe foraminal stenosis on the left at C6-C7 secondary to uncinate joint degenerative change. 2. The no abnormalities in cord signal. Electronically signed by: Bryce Contreras On 07/02/2020 19:44:10 PM
[2020-07-02] MEDS: DOCUSATE SODIUM 100MG CAPSULE PO SCH (21:49)
[2020-07-02 22:00] VITALS: BP 130/75
[2020-07-03 06:00] VITALS: BP 126/75
[2020-07-03] MEDS: ENOXAPARIN 40MG/0.4ML SYRINGE (J1650 PER 10MG) SC SCH (10:07)
[2020-07-03] MEDS: PARoxetine 20MG TABLET PO SCH (10:07)
[2020-07-03] MEDS: DOCUSATE SODIUM 100MG CAPSULE PO SCH ×2 (10:07→20:51)
[2020-07-03] MEDS: BENAZEPRIL 5 MG TAB PO SCH (10:09)
[2020-07-03] MEDS: amLODIPine 5 MG TAB PO SCH (10:10)
[2020-07-03] MEDS ORDERED: PROHANCE 279.3MG/ML 15ML VIAL As Ordered ONE (13:53)
[2020-07-03 15:00] VITALS: BP 138/87
--- NOTE | 2020-07-03 15:54 | REPVR ---
PROCEDURE INFORMATION: Exam: MR Thoracic Spine Without and With Contrast Exam date and time: 07/03/2020 2:08 PM Age: 64 years old Clinical indication: Patient HX: Lower extremity weakness TECHNIQUE: Imaging protocol: Multiplanar magnetic resonance images of the thoracic spine without and with contrast. Contrast material: PROHANCE; Contrast volume: 15 ml; Contrast route: INTRAVENOUS (IV); COMPARISON: No relevant prior studies available. FINDINGS: Vertebrae: Unremarkable. Spinal cord: Normal signal. No cord compression. Discs/Spinal canal/Neural foramina: No significant disc disease. No significant spinal canal stenosis. Soft tissues: Unremarkable. There is no abnormal enhancement. IMPRESSION: Unremarkable thoracic spine. Electronically signed by: Walter Paige On 07/03/2020 15:53:56 PM
--- NOTE | 2020-07-03 15:58 | REPVR ---
PROCEDURE INFORMATION: Exam: MR Lumbar Spine Without and With Contrast. Exam date and time: 07/03/2020 2:08 PM Age: 64 years old Clinical indication: Patient HX: Lower extremity weakness TECHNIQUE: Imaging protocol: Multiplanar magnetic resonance images of the lumbar spine without and with intravenous contrast. Contrast material: PROHANCE; Contrast volume: 15 ml; Contrast route: INTRAVENOUS (IV); COMPARISON: No relevant prior studies available. FINDINGS: Vertebrae: Unremarkable. Spinal cord: Normal signal. No cord compression. L1-L2: No significant disc disease. No significant spinal canal stenosis. No neural foraminal stenosis. L2-L3: No significant disc disease. No significant spinal canal stenosis. No neural foraminal stenosis. L3-L4: No significant disc disease. No significant spinal canal stenosis. No neural foraminal stenosis. L4-L5: No significant disc disease. No significant spinal canal stenosis. No neural foraminal stenosis. L5-S1: No significant disc disease. No significant spinal canal stenosis. No neural foraminal stenosis. Soft tissues: Unremarkable. There is no abnormal enhancement. IMPRESSION: Unremarkable lumbar spine. Electronically signed by: Walter Paige On 07/03/2020 15:57:51 PM
[2020-07-03 22:00] VITALS: BP 133/89
[2020-07-04 06:00] VITALS: BP 131/84
--- NOTE | 2020-07-04 08:09 | CR ---
CONSULTATION DATE: 07/03/2020 REFERRING PHYSICIAN: Orestes Sotelo MD REASON FOR CONSULTATION: Bilateral leg weakness. HISTORY OF PRESENT ILLNESS: Josiane Victoria is a 64-year-old woman with a history of depression, dyslipidemia, ovarian cancer, status post chemotherapy in 2004, who was at her baseline state of health until the night before yesterday. She was bringing groceries to her house around 8 p.m. when her legs gave out and she had to crawl inside her house to find a chair. She finally was able to get up on her chair. When she tried standing up, she collapsed again and fell. She called her spouse who brought her to [facility]. The patient had occipital headache for three days at the time of her arrival in the emergency department. The patient was noted imbalance and incoordination while walking. Her reflexes were noted to be normal. The patient had MRI, MRA of brain and neck which were unremarkable except mild atherosclerosis of bilateral internal carotid arteries in the neck. There was no acute disease. The patient denies any neck or back pain. She states that she has chronic numbness and tingling in her feet and toes since 2014 when she had chemotherapy for her ovarian cancer. That has not changed. She denies any problem with her bowel or bladder. She denies dysphagia, dysarthria, diplopia, urinary incontinence, loss of consciousness. In the hospital when she tries to use a restroom, her legs tend to give out when she is trying to sit down on the toilet. PAST MEDICAL HISTORY: Dyslipidemia, depression, neuropathy, ovarian cancer, hysterectomy, cholecystectomy. SOCIAL HISTORY: She denies smoking, alcohol or illicit drugs. FAMILY HISTORY: There is no family history of neurological diseases. REVIEW OF SYSTEMS: All systems were reviewed and were found to be noncontributory except as mentioned in the present illness. HOME MEDICATIONS: 1. Amlodipine/benazepril 5-10 mg p.o. daily. 2. Paxil 20 mg. p.o. daily. PHYSICAL EXAMINATION: VITAL SIGNS: Pulse 72, blood pressure 136/88, temperature 98.2, respiratory rate 17. HEART: Regular rate and rhythm. LUNGS: Clear to auscultation. ABDOMEN: Soft, nontender, nondistended. EXTREMITIES: No pedal edema. MUSCULOSKELETAL: No abnormalities. SKIN: No rash. NEUROLOGICAL: No signs of meningeal irritation. The patient is awake, alert, oriented to place, person and time. Normal speech, comprehension and repetition. Extraocular muscles are intact. No facial weakness. Tongue and uvula are midline. 5/5 strength in all four extremities. Deep tendon reflexes are 2+ throughout. She has decreased cold sensation in her feet. Her gait is unsteady. Romberg testing is negative. There is no dysmetria, ataxia or nystagmus. There are no signs of meningeal irritation. DIAGNOSTIC STUDIES: MRI, MRA, brain and neck are summarized above. MRI scan, cervical spine showed multilevel degenerative disc disease between C3-7 levels with mild-moderate cervical stenosis and thecal sac compression without spinal cord signal changes. There is also bilateral C5-6 and left C6-7 foraminal stenosis. CBC, metabolic profile were normal. ESR and CRP were normal, 16, less than 0.3 respectively with CK 355. ASSESSMENT: 1. Gait difficulty of unclear etiology. 2. Multilevel cervical disc disease, mild-moderate cervical stenosis which does not explain her gait difficulty. The patient states that she is completely fine waist above and she only feels weakness between her hips and knees. She denies any involvement of arms which will be unusual for Guillain-Weldon syndrome. Her reflexes are intact. 3. Rule out transverse myelitis. PLAN: 1. MRI of thoracic and lumbar spine with and without contrast. 2. Check vitamin B12, vitamin B1, serum copper, etc. 3. Physical outpatient therapy. 4. Follow with our office in 1-2 weeks after hospital discharge. We can ask spine surgery to see her but I do not believe her cervical disc changes would cause her gait difficulty without involvement of cervical spinal cord. 5. EMG nerve conduction study of legs on an outpatient basis. [facility]
[2020-07-04 08:22] LABS: BASO % 0.5 % (0.0-1.0); EOS # 0.1 10^3/uL (0.0-0.5); EOS % 3.4 % (0.0-3.0); HEMATOCRIT 35.9 % (36.0-47.0); HEMOGLOBIN 11.7 g/dl (12.0-15.5); LYMPH # 1.3 10^3/uL (1.5-5.0); LYMPH % 30.8 % (24.0-44.0); MEAN CORPUSCULAR HEMOGLOBIN 32.2 pg (27.0-33.0); MEAN CORPUSCULAR HGB CONC 32.6 g/dl (32.0-36.5); MEAN CORPUSCULAR VOLUME 98.9 fl (80.0-96.0); MONO # 0.6 10^3/uL (0.0-0.8); MONO % 13.7 % (0.0-5.0); NEUTROPHILS # 2.1 10^3/uL (1.5-8.5); NEUTROPHILS % 51.1 % (36.0-66.0); PLATELET COUNT, AUTOMATED 190 10^3/uL (150-450); RED BLOOD COUNT 3.63 10^6/uL (4.00-5.40); WHITE BLOOD COUNT 4.2 10^3/uL (4.0-10.0)
[2020-07-04] MEDS: PARoxetine 20MG TABLET PO SCH (08:41)
[2020-07-04] MEDS: ENOXAPARIN 40MG/0.4ML SYRINGE (J1650 PER 10MG) SC SCH (08:41)
[2020-07-04] MEDS: amLODIPine 5 MG TAB PO SCH (08:42)
[2020-07-04] MEDS: BENAZEPRIL 5 MG TAB PO SCH (08:42)
[2020-07-04] MEDS: DOCUSATE SODIUM 100MG CAPSULE PO SCH ×2 (08:43→21:27)
[2020-07-04 08:57] LABS: ALBUMIN 3.4 GM/DL (3.2-5.2); ALT/SGPT 53 U/L (12-78); BILIRUBIN,TOTAL 0.4 MG/DL (0.2-1.0); BLOOD UREA NITROGEN 11 MG/DL (7-18); CARBON DIOXIDE LEVEL 27 MEQ/L (21-32); CHLORIDE LEVEL 107 MEQ/L (98-107); GLOMERULAR FILTRATION RATE > 60.0 (>45); GLUCOSE, FASTING 102 MG/DL (70-100); POTASSIUM SERUM 3.9 MEQ/L (3.5-5.1); SODIUM LEVEL 141 MEQ/L (136-145); TOTAL PROTEIN 6.6 GM/DL (6.4-8.2)
[2020-07-04] MEDS ORDERED: FOLIC ACID 1 MG TAB PO ONE (11:45)
[2020-07-04] MEDS ORDERED: THIAMINE 100 MG TAB PO ONE (11:45)
[2020-07-04] MEDS ORDERED: THIA100TA PO (11:56)
[2020-07-04] MEDS ORDERED: FOLI1TAB11 PO (11:56)
--- NOTE | 2020-07-04 11:58 | IPNPDOC ---
Text Note Date of Service The patient was seen on 07/03/20. NOTE Subjective: Patient seen and examined at bedside. No new medical complaints this morning. No acute overnight events reported. Patient states she still has bilateral thigh weakness. Objective: VITAL SIGNS: please see below General: NAD, comfortable HEENT: PERRLA, EOMI, sclerae clear Neck: supple, normal ROM, no JVD Respiratory: lungs CTAB, no wheeze, no rales, no crackles CVS: RRR, normal S1, S2, no murmurs Abdo: soft, no masses, no hepatosplenomegaly, BS+, no rebound tenderness Extremities: no edema, pulses 2+ MSK: no joint deformities, normal ROM Neuro: no focal neuro deficits, moving all 4 extremities, CN2-12 intact. Strength 5/5 in all 4 extremities. No nystagmus. Psych: calm, cooperative, AAO x 3 ASSESSMENT: 64-year-old female with a history of hyperlipidemia, ovarian cancer presenting with unsteady gait and bilateral lotion to weakness for the past 12 hours. Suspected for CVA, brain imaging has been negative so far. Discussed with neuro in the ER. Recommending MRI C-spine. Admitted for physical therapy and observation. PLAN: #unsteady gait - 12 hour hx of BLE weakness, and unsteady gait. No focal numbness, no cranial nerve deficits, no slurred speech or blurred vision. - CT head, MRA, MRI, MR carotids without acute abnormality - discussed Cspine imaging with neuro - MRI lumbar and thoracic spine - check orthostats - PT/OT - fall precautions #HTN - resume home meds - amlodipine, benazepril #Depression - paroxetine 20 mg tab DVT ppx: SCDs, TEDs, lovenox VS,Fishbone, I+O VS, Fishbone, I+O Vital Signs Date Time Temp Pulse Resp B/P (MAP) Pulse Ox O2 Delivery O2 Flow Rate FiO2 07/03/20 10:10 72 07/03/20 10:09 136/88 07/03/20 06:00 98.2 17 95 Room Air I&O- Last 24 Hours up to 6 AM 07/03/20 06:00 Intake Total 950 ml Output Total 150 ml Balance 800 ml WADE PAIZ MD Jul 03, 2020 11:25
--- NOTE | 2020-07-04 11:59 | IPNPDOC ---
Text Note Date of Service The patient was seen on 07/04/20. NOTE Subjective: Patient seen and examined at bedside. No new medical complaints this morning. No acute overnight events reported. Patient states she still has bilateral thigh weakness. Objective: VITAL SIGNS: please see below General: NAD, comfortable HEENT: PERRLA, EOMI, sclerae clear Neck: supple, normal ROM, no JVD Respiratory: lungs CTAB, no wheeze, no rales, no crackles CVS: RRR, normal S1, S2, no murmurs Abdo: soft, no masses, no hepatosplenomegaly, BS+, no rebound tenderness Extremities: no edema, pulses 2+ MSK: no joint deformities, normal ROM Neuro: no focal neuro deficits, moving all 4 extremities, CN2-12 intact. Strength 5/5 in all 4 extremities. No nystagmus. Psych: calm, cooperative, AAO x 3 ASSESSMENT: 64-year-old female with a history of hyperlipidemia, ovarian cancer presenting with unsteady gait and bilateral lotion to weakness for the past 12 hours. Suspected for CVA, brain imaging has been negative so far. Discussed with neuro in the ER. Recommending MRI C-spine. Admitted for physical therapy and observation. PLAN: #unsteady gait - discussed with neurology - no further workup - possibly related to alcohol use - outpatient followup - workup unrevealing here - continue with PT/OT - fall precautions #HTN - resume home meds - amlodipine, benazepril #Depression - paroxetine 20 mg tab DVT ppx: SCDs, TEDs, lovenox Dispo: anticipate discharge in 24 hours, follow up with PT Shauna LANGSTON, I+O VSShauna I+O Laboratory Tests 07/04/20 08:02 Vital Signs Date Time Temp Pulse Resp B/P (MAP) Pulse Ox O2 Delivery O2 Flow Rate FiO2 07/04/20 08:42 69 132/85 07/04/20 06:00 97.4 18 97 Room Air I&O- Last 24 Hours up to 6 AM 07/04/20 06:00 Intake Total 2350 ml Output Total 1775 ml Balance 575 ml WADE PAIZ MD Jul 04, 2020 11:59
[2020-07-04 14:00] VITALS: BP 119/74
[2020-07-04 22:00] VITALS: BP 131/84
[2020-07-05 06:00] VITALS: BP 145/71
[2020-07-05] MEDS: DOCUSATE SODIUM 100MG CAPSULE PO SCH (08:36)
[2020-07-05] MEDS: ENOXAPARIN 40MG/0.4ML SYRINGE (J1650 PER 10MG) SC SCH (08:36)
[2020-07-05 08:37] VITALS: BP 130/89
[2020-07-05] MEDS: amLODIPine 5 MG TAB PO SCH (08:37)
[2020-07-05] MEDS: PARoxetine 20MG TABLET PO SCH (08:37)
[2020-07-05] MEDS: BENAZEPRIL 5 MG TAB PO SCH (09:48)
--- NOTE | 2020-07-05 12:49 | DS.PDOC ---
Discharge Summary General Date of Admission Jul 02, 2020 at 13:48 Date of Discharge 07/05/20 Discharge Summary PROCEDURES PERFORMED DURING STAY: [None]. ADMITTING DIAGNOSES: unsteady gait SECONDARY DIAGNOSES: #HYPERCHOLESTEREMIA #DEPRESSION #NEUROPATHY #OVARIAN CA. COMPLICATIONS/CHIEF COMPLAINT: Unsteady Gait.. HISTORY OF PRESENT ILLNESS: 64-year-old female with a history of depression, hypercholesterolemia, and ovarian cancer, presented to hospital with a 12 hour history of unsteady gait and lower extremity weakness. Patient denies any li ghtheadedness, dizziness, blurred vision, dictations, chest pain, shortness of breath, nausea, vomiting or diarrhea. On arrival to the ED, patient's vitals were stable. She was saturating 98% on room air. Her blood pressure was 147/83. For for mild elevation in creatinine kinase to 355, there was no laboratory abnormality. Given concern for stroke. Head CT, carotid MRI brain MRI and MRA were conducted which showed no acute intracranial abnormality or stenosis. Recommendation for MRI of the C-spine per Dr. Crow. Patient will be admitted to hospitalist service for monitoring. Physical therapy and her ongoing imaging. HOSPITAL COURSE: Admitted for further evaluation and treatment. Seen in consultation by neurology. Some concern for transverse myelitis and/or me tastatic disease. MRI thoracic and lumbar spine with/out contrast unrevealing. Hospital stay otherwise unremarkable. Patient cleared by PT, discharged home with rolling walker, home health, and outpatient follow up. DISCHARGE MEDICATIONS: Please see below. ALLERGIES: Please see below. PHYSICAL EXAMINATION ON DISCHARGE: VITAL SIGNS: please see below General: NAD, comfortable HEENT: PERRLA, EOMI, sclerae clear Neck: supple, normal ROM, no JVD Respiratory: lungs CTAB, no wheeze, no rales, no crackles CVS: RRR, normal S1, S2, no murmurs Abdo: soft, no masses, no hepatosplenomegaly, BS+, no rebound tenderness Extremities: no edema, pulses 2+ MSK: no joint deformities, normal ROM Neuro: no focal neuro deficits, moving all 4 extremities, CN2-12 intact. Strength 5/5 in all 4 extremities. No nystagmus. Psych: calm, cooperative, AAO x 3 LABORATORY DATA: Please see below. DISPOSITION: 01 Home, Self-Care. DISCHARGE INSTRUCTIONS: 1. PCP in 3-5 days DISCHARGE CONDITION: [Stable]. TIME SPENT ON DISCHARGE: 35 minutes. Vital Signs/I&Os Vital Signs Date Time Temp Pulse Resp B/P (MAP) Pulse Ox O2 Delivery O2 Flow Rate FiO2 07/05/20 08:37 78 130/89 07/05/20 06:00 98.3 17 96 Room Air I&O- Last 24 Hours up to 6 AM 07/05/20 06:00 Intake Total 2255 ml Output Total 1625 ml Balance 630 ml Discharge Medications Scheduled Amlodipine Besylate/Benazepril (Lotrel 5-10 mg Capsule) 1 Each Capsule, 1 CAP PO DAILY, (Reported) Folic Acid (Folic Acid) 1 Mg Tablet, 1 TAB PO DAILY Paroxetine HCl (Paroxetine HCl) 20 Mg Tablet, 20 MG PO DAILY, (Reported) Thiamine Hcl (Vitamin B-1) 100 Mg Tablet, 1 TAB PO DAILY Allergies Coded Allergies: No Known Allergies (Unverified , 10/23/19) WADE PAIZ MD Jul 05, 2020 12:49
== END 2020-07-05 11:31 | disposition home or self-care (01) | DRG 93 ==
LOC: M ED 01:50 → M ED INP 13:48 → M MSPAV 15:41
PROVIDERS: ADMIT Family Medicine; ATTEND Internal Medicine
DX: R26.81 Unsteadiness on feet (principal); E78.00 Pure hypercholesterolemia, unspecified; F32.9 Major depressive disorder, single episode, unspecified; G62.9 Polyneuropathy, unspecified; R53.1 Weakness; R20.0 Anesthesia of skin; Z85.43 Personal history of malignant neoplasm of ovary; Z90.49 Acquired absence of other specified parts of digestive tract; Z90.710 Acquired absence of both cervix and uterus; Z20.822 Contact with and (suspected) exposure to COVID-19; Z79.899 Other long term (current) drug therapy; Z92.21 Personal history of antineoplastic chemotherapy

== ENCOUNTER → 2023-04-16 | Outpatient (REF) | payer MEDICARE, OTHER ==
[~2023-04-16] MED LIST changes: +FOLI1TAB11 PO; +LOTR5CAP2 PO; +PARO20TA3 PO; +THIA100TA PO
[2023-04-16 13:00] LABS: ALBUMIN 3.8 G/DL (3.2-5.2); ALKALINE PHOSPHATASE 74 U/L (46-116); ALT/SGPT 37 U/L (7.0-40); AST/SGOT 29 U/L (<34); BILIRUBIN,TOTAL 0.6 MG/DL (0.3-1.2); BLOOD UREA NITROGEN 12 MG/DL (9-23); CALCIUM LEVEL 9.3 MG/DL (8.3-10.6); CARBON DIOXIDE LEVEL 26 MMOL/L (20-31); CHLORIDE LEVEL 105 MMOL/L (98-107); CHOLESTEROL LEVEL 222 MG/DL (<200); CHOLESTEROL RISK RATIO 2.49 (<5); CREATININE FOR GFR 0.62 MG/DL (0.55-1.30); GLOMERULAR FILTRATION RATE > 60.0 (>45); GLUCOSE, FASTING 100 MG/DL (74-106); LDL CHOLESTEROL 112.4 MG/DL (<100); POTASSIUM SERUM 4.3 MMOL/L (3.5-5.1); SODIUM LEVEL 137 MMOL/L (136-145); TOTAL PROTEIN 6.8 G/DL (5.7-8.2); TRIGLYCERIDES LEVEL 103 MG/DL (<150)
== END ==
LOC: M LABDRAWC 12:02
PROVIDERS: ATTEND Family Medicine
DX: I10 Essential (primary) hypertension (principal)

== ENCOUNTER → 2024-03-31 | Outpatient (REF) | payer MEDICARE, OTHER ==
[2024-03-31 12:34] LABS: HEMATOCRIT 38.4 % (36.0-47.0); HEMOGLOBIN 12.8 g/dl (12.0-15.5); MEAN CORPUSCULAR HEMOGLOBIN 32.9 pg (27.0-33.0); MEAN CORPUSCULAR HGB CONC 33.3 g/dl (32.0-36.5); MEAN CORPUSCULAR VOLUME 98.7 fl (80.0-96.0); PLATELET COUNT, AUTOMATED 201 10^3/uL (150-450); RED BLOOD COUNT 3.89 10^6/uL (4.00-5.40); WHITE BLOOD COUNT 4.6 10^3/uL (4.0-10.0)
[2024-03-31 12:40] LABS: ALBUMIN 3.6 G/DL (3.2-5.2); ALKALINE PHOSPHATASE 70 U/L (35-104); ALT/SGPT 34 U/L (7.0-40); AST/SGOT 19 U/L (<34); BILIRUBIN,TOTAL 0.6 MG/DL (0.3-1.2); BLOOD UREA NITROGEN 14 MG/DL (9-23); CALCIUM LEVEL 9.7 MG/DL (8.3-10.6); CARBON DIOXIDE LEVEL 29 MMOL/L (20-31); CHLORIDE LEVEL 102 MMOL/L (98-107); CHOLESTEROL LEVEL 237 MG/DL (<200); CHOLESTEROL RISK RATIO 2.57 (<5); CREATININE FOR GFR 0.67 MG/DL (0.55-1.30); GLOMERULAR FILTRATION RATE > 60.0 (>45); GLUCOSE, FASTING 102 MG/DL (74-106); HDL CHOLESTEROL 92.2 MG/DL (>40); LDL CHOLESTEROL 124.4 MG/DL (<100); NON-HDL-C 144.8 MG/DL; POTASSIUM SERUM 4.4 MMOL/L (3.5-5.1); SODIUM LEVEL 138 MMOL/L (136-145); TOTAL PROTEIN 6.9 G/DL (5.7-8.2); TRIGLYCERIDES LEVEL 102 MG/DL (<150)
[2024-03-31 12:41] LABS: THYROID STIMULATING HORMONE 1.314 uIU/ML (0.55-4.78)
== END ==
LOC: M LABDRAWC 11:39
PROVIDERS: ATTEND Family Medicine
DX: I10 Essential (primary) hypertension (principal); R53.81 Other malaise